=== PATIENT | male | born 1990 | race Caucasian/White ===

== ENCOUNTER 2023-12-30 00:50 | Emergency (ER) | payer MEDICAID, SELFPAY ==
[2023-12-30 00:54] VITALS: BP 146/106; PULSE 75; TEMP 36.6; O2SAT 97; BMI 42.4
--- NOTE | 2023-12-30 01:20 | ED_ITS ---
HPI HPI - Back Pain/Injury General Chief Complaint: Back Pain/Injury Stated Complaint: flank pain Time Seen by Provider: 12/30/23 01:09 Mode of arrival: walk-in Limitations: no limitations History of Present Illness HPI Narrative: patient presents complaining of right sided back pain for past 3 days. States pain has increased. No injury. No urinary symptoms. No fever , chills or nausea Related Data Home Medications ?Medication ?Instructions ?Recorded ?Confirmed acetaminophen 500 mg capsule 500 mg PO Q6H PRN pain 12/30/23 12/30/23 atorvastatin 20 mg tablet 20 mg PO DAILY 12/30/23 12/30/23 cariprazine 1.5 mg capsule 1.5 mg PO DAILY 12/30/23 12/30/23 dulaglutide 0.75 mg/0.5 mL 0.75 mg subcut QWEEK 12/30/23 12/30/23 subcutaneous pen injector (Trulicity) hydroxyzine pamoate 25 mg capsule 25 mg PO Q6H PRN anxiety 12/30/23 12/30/23 (Vistaril) ibuprofen 800 mg tablet 800 mg PO Q12H PRN pain 12/30/23 12/30/23 insulin glargine 100 unit/mL (3 23 unit subcut QAM 12/30/23 12/30/23 mL) subcutaneous pen (Basaglar KwikPen U-100 Insulin) losartan 25 mg tablet 25 mg PO DAILY 12/30/23 12/30/23 melatonin 10 mg PO .hs PRN sleep 12/30/23 12/30/23 metformin 500 mg tablet,extended 500 mg PO BID 12/30/23 12/30/23 release 24 hr omeprazole 20 mg capsule,delayed 20 mg PO DAILY 12/30/23 12/30/23 release ondansetron 8 mg disintegrating 8 mg PO Q12H PRN nausea and 12/30/23 12/30/23 tablet vomiting sertraline 50 mg tablet (Zoloft) 50 mg PO DAILY 12/30/23 12/30/23 Allergies Allergy/AdvReac Type Severity Reaction Status Date / Time No Known Drug Allergies Allergy Verified 12/30/23 01:00 Opioid HPI Opioid Management Most Recent Opioid Data: Last Pain Scale 6 12/30/23 02:46 Last MAR Pain Assessment 12/30/23 02:46 Review of Systems ROS Status of ROS 10 or more systems reviewed and unremark able except as noted in history and below Exam Constitutional Vital Signs, click to edit/add: Last Vital Signs Temp 97.9 F 12/30/23 00:54 Pulse 75 12/30/23 00:54 Resp 16 12/30/23 00:54 BP 146/106 H 12/30/23 00:54 Pulse Ox 97 12/30/23 00:54 O2 Del Method Room Air 12/30/23 00:54 Common normals: no apparent distress, average body habitus, oriented x3, no limitations, healthy appearing, alert and well nourished Eye Common normals: EOMs intact bilaterally Respiratory Common normals: normal respiratory effort, no retractions, no use of accessory muscles and clear to auscultation bilaterally Cardio Common normals: regular rate, regular rhythm, S1 normal heart sound and S2 normal heart sound GI Common normals: Normal to inspection, nondistended, normoactive bowel sounds present, soft to palpation and non-tender Back & Pelvis Other: R CVA tenderness Neuro Common normals: oriented x3, CN's II-XII intact bilaterally, moves all extremities and no focal motor deficits Psych Appearance: grossly normal Course Vital Signs Vital signs: Vital Signs Temperature 97.9 F 12/30/23 00:54 Pulse Rate 75 12/30/23 00:54 Respiratory Rate 16 12/30/23 00:54 Blood Pressure 146/106 H 12/30/23 00:54 Pulse Oximetry 97 12/30/23 00:54 Oxygen Delivery Method Room Air 12/30/23 00:54 Temperature 97.9 F 12/30/23 00:54 Pulse Rate 75 12/30/23 00:54 Respiratory Rate 16 12/30/23 00:54 Blood Pressure 146/106 H 12/30/23 00:54 Pulse Oximetry 97 12/30/23 00:54 Oxygen Delivery Method Room Air 12/30/23 00:54 MDM - Back Pain/Injury MDM Narrative Medical decision making narrative: patient presents complaining of pain right CVA/rib cage area. No injury. mild tenderness. CT with disc herniation at T6-7, T7-8 that flattens R thecal sac and is most likely cause of his pain. Patient informed of the above and referred to pain specialist for intervention Lab Data Labs: Lab Results 12/30/23 12/30/23 Range/Units 01:00 01:37 WBC 9.6 (4.0-11.0) 10^3/uL RBC 4.78 (4.70-6.10) 10^6/uL Hgb 14.5 (14.0-18.0) g/dL Hct 43.9 (42.0-54.0) % MCV 91.8 (80.0-94.0) fL MCH 30.3 (25.9-34.0) pg MCHC 33.0 (29.9-35.2) g/dL RDW 12.4 (11.0-15.0) % Plt Count 229 (150-450) 10^3/uL MPV 11.1 (9.5-13.5) fL Neut % (Auto) 51.3 (43.0-75.0) % Lymph % (Auto) 39.5 (20.5-60.0) % [place] % (Auto) 6.6 (1.7-12.0) % Eos % (Auto) 1.4 (0.9-7.0) % Baso % (Auto) 0.8 (0.2-2.0) % Neut # (Auto) 4.9 (1.4-6.5) 10^3/uL Lymph # (Auto) 3.8 (1.2-3.8) 10^3/uL [place] # (Auto) 0.6 (0.3-0.8) 10^3/uL Eos # (Auto) 0.1 (0.0-0.7) 10^3/uL Baso # (Auto) 0.1 (0.0-0.1) 10^3/uL Abs Immat Gran (auto) 0.04 H (0.00-0.03) 10^3/uL Imm/Tot Granulo (auto) 0.4 (0.0-0.5) % Sodium 137 (136-145) mmol/L Potassium 4.1 (3.5-5.1) mmol/L Chloride 101 (98-107) mmol/L Carbon Dioxide 30.8 (21.0-32.0) mmol/L Anion Gap 9.3 BUN 12.0 (7.0-18.0) mg/dL Creatinine 0.86 (0.70-1.30) mg/dL Est GFR ( Amer) >60 (>=60) Est GFR (Non-Af Amer) >60 (>=60) BUN/Creatinine Ratio 14.0 Glucose 291 H (74-106) mg/dL Calcium 9.4 (8.5-10.1) mg/dL Total Bilirubin 0.4 (0.2-1.0) mg/dL AST 14 L (15-37) U/L ALT 33 (16-63) U/L Alkaline Phosphatase 105 (46-116) U/L Total Protein 7.4 (6.4-8.2) g/dL Albumin 3.3 L (3.4-5.0) g/dL Globulin 4.1 g/dL Albumin/Globulin Ratio 0.8 Urine Color Yellow (YELLOW) Urine Clarity Clear (CLEAR) Urine pH 5.5 (5.0-9.0) Ur Specific [place] 1.025 (1.005-1.025) Urine Protein Negative (NEG/TRACE) mg/dL Urine Glucose (UA) >=1000 A (NEGATIVE) mg/dL Urine Ketones Trace A (NEGATIVE) mg/dL Urine Occult Blood Negative (NEGATIVE) Urine Nitrite Negative (NEGATIVE) Urine Bilirubin Negative (NEGATIVE) Urine Urobilinogen 1.0 (0.2-1.0) EU/dL Ur Leukocyte Esterase Negative (NEGATIVE) Imaging Data CT scan - abdomen: Radiologist's impression: ITS Impressions Abdomen/Pelvis CT 12/30/23 01:23 IMPRESSION: Hepatic steatosis with mild hepatic enlargement, otherwise negative CT of the abdomen and pelvis without contrast. These imaging findings do not exclude additional clinically significant abnormalities. This report should be interpreted in the context of clinical information including patient symptoms and available laboratory findings. Follow-up imaging or other interventions may be appropriate, if indicated by your clinical impression. Electronically authenticated by: PAPI SY Date: 12/30/2023 03:16 Chest X-Ray 12/30/23 01:23 IMPRESSION: Mild streaky opacities at the right infrahilar lower lung reflecting atelectasis or lung infiltrates. If there is persistent concern, then CT chest to better evaluate. Electronically authenticated by: REGINO CHENG Date: 12/30/2023 03:[address] 12/30/23 03:40 IMPRESSION: At T6-T7 and T7-T8 of the thoracic spine, there are large right eccentric disc herniation/osteophyte complexes which flatten the right ventral thecal sac and contribute to right paracentral spinal canal stenosis and right bony neural foraminal stenoses at these levels. Recommend MRI spine without contrast to better evaluate for any cord compression and also to evaluate the degree of canal stenosis. Mild streaky lung opacities at the right middle lobe reflecting atelectasis/scar, less likely lung infiltrates. Mild left coronary artery calcifications. No enlarged heart size or large pericardial effusion. Electronically authenticated by: REGINO CHENG Date: 12/30/2023 05:19 Discharge Plan Discharge Stand Alone Forms: Portal Instructions Chief Complaint: Back Pain/Injury Clinical Impression: Thoracic back pain Patient Disposition: Home, Self-Care Prescriptions / Home Meds: No Action metformin 500 mg tablet extended release 24 hr 500 mg PO BID insulin glargine [Basaglar KwikPen U-100 Insulin] 100 unit/mL (3 mL) insulin pen 23 unit subcut QAM Trulicity 0.75 mg/0.5 mL pen injector 0.75 mg subcut QWEEK Rx Instructions: Start 12/30 atorvastatin 20 mg tablet 20 mg PO DAILY losartan 25 mg tablet 25 mg PO DAILY cariprazine 1.5 mg capsule 1.5 mg PO DAILY sertraline [Zoloft] 50 mg tablet 50 mg PO DAILY omeprazole 20 mg capsule,delayed release(DR/EC) 20 mg PO DAILY acetaminophen 500 mg capsule 500 mg PO Q6H PRN (Reason: pain) Rx Instructions: 1-2 tabs ibuprofen 800 mg tablet 800 mg PO Q12H PRN (Reason: pain) melatonin 10 mg 10 mg PO .hs PRN (Reason: sleep) hydroxyzine pamoate [Vistaril] 25 mg capsule 25 mg PO Q6H PRN (Reason: anxiety) ondansetron 8 mg tablet,disintegrating 8 mg PO Q12H PRN (Reason: nausea and vomiting) Print Language: Lithuanian Instructions: Thoracic Disc Herniation (ED) Additional Instructions: follow up with pain specialist Referrals: Kevon Boyce MD [Emergency Provider] - 1 week Lashanda Cleveland MD [Physician] - As soon as possible (Call Monday) Physician,Non-Staff, [Primary Care Provider] - 1 week
--- NOTE | 2023-12-30 01:23 | XR_ITS ---
The [place] [id number] Patient Name: LINDSAY CRUZ MRN: [id number] date: 1990 Sex: M Assigned Patient Location: ER Current Patient Location: ER Accession/Order Number: [id number] Exam Date: 12/30/2023 01:40 Report Date: 12/30/2023 03:13 At the request of: ANA STACK Procedure: XR chest 2V EXAM: XR chest 2V HISTORY: right CVA pain COMPARISON: Chest x-ray 11/25/2023 TECHNIQUE: 2 views chest x-rays frontal and lateral FINDINGS: Mild streaky opacities at the right infrahilar lower lung. No large pleural effusion, pneumothorax, or acute bony abnormality. Cardiac size is unremarkable. XR/XR chest 2V IMPRESSION: Mild streaky opacities at the right infrahilar lower lung reflecting atelectasis or lung infiltrates. If there is persistent concern, then CT chest to better evaluate. Electronically authenticated by: REGINO CHENG Date: 12/30/2023 03:13
--- NOTE | 2023-12-30 01:23 | CT_ITS ---
The [address] [address] Patient Name: LINDSAY CRUZ MRN: [id number] date: 1990 Sex: M Assigned Patient Location: ER Current Patient Location: Accession/Order Number: [id number] Exam Date: 12/30/2023 01:45 Report Date: 12/30/2023 03:16 At the request of: ANA STACK Procedure: CT abdomen pelvis wo con CT ABDOMEN PELVIS WITHOUT CONTRAST HISTORY: Right CVA pain. Right flank pain with burning sensation. COMPARISON: None. TECHNIQUE: Thin section axial CT images were obtained from the lung bases to the pubis symphysis. This CT exam was performed using one or more of the following dose reduction techniques: Automated exposure control, adjustment of the mA and/or kV according to patient size, or use of iterative reconstruction technique. Thin section coronal and sagittal images were reconstructed from the axial data set. All images were reviewed and interpreted. CONTRAST: None. FINDINGS: Assessment of solid organs is limited without the benefit of IV contrast. LUNG BASES: The lung bases are clear. GE JUNCTION AND STOMACH: Negative. No hiatal hernia. LIVER: Mild diffuse hepatic steatosis. Mild hepatomegaly. Splenic length 21 cm. No hepatic mass or cyst. Mild sparing of fatty infiltration around gallbladder fossa. GALLBLADDER AND BILIARY TREE: Normal appearance of gallbladder with no intrahepatic or extrahepatic bile duct distention. SPLEEN: Negative. PANCREAS: Negative. ADRENALS: Negative. KIDNEYS AND URETERS: Negative. No urinary tract calculi or hydronephrosis. No renal masses or cysts are evident. SMALL BOWEL: Normal caliber loops. No enteritis or obstruction. LARGE BOWEL: Normal caliber loops. No colitis or diverticulosis or wall thickening. APPENDIX: No active disease with normal appendix. AORTA: The abdominal aorta is normal size. IVC: Negative. LYMPH NODES: There is no lymphadenopathy. BLADDER: Normal bladder. BONES: Unremarkable. COMMENTS: No ascites or loculated fluid. No free air. No inflammatory changes. CT/CT abdomen pelvis wo con IMPRESSION: Hepatic steatosis with mild hepatic enlargement, otherwise negative CT of the abdomen and pelvis without contrast. These imaging findings do not exclude additional clinically significant abnormalities. This report should be interpreted in the context of clinical information including patient symptoms and available laboratory findings. Follow-up imaging or other interventions may be appropriate, if indicated by your clinical impression. Electronically authenticated by: PAPI SY Date: 12/30/2023 03:16
[2023-12-30 01:48] LABS: Basophils Absolute Auto 0.1 10^3/uL (0.0-0.1); Basophils Percent Auto 0.8 % (0.2-2.0); Eosinophils Absolute Auto 0.1 10^3/uL (0.0-0.7); Eosinophils Percent Auto 1.4 % (0.9-7.0); Hematocrit 43.9 % (42.0-54.0); Hemoglobin 14.5 g/dL (14.0-18.0); Immature Granulocytes Abs Auto 0.04 10^3/uL (0.00-0.03); Immature Granulocytes Pct Auto 0.4 % (0.0-0.5); Lymphocytes Absolute Auto 3.8 10^3/uL (1.2-3.8); Lymphocytes Percent Auto 39.5 % (20.5-60.0); Mean Corpuscular Hemoglobin 30.3 pg (25.9-34.0); Mean Corpuscular Volume 91.8 fL (80.0-94.0); Mean Platelet Volume 11.1 fL (9.5-13.5); Monocytes Absolute Auto 0.6 10^3/uL (0.3-0.8); Monocytes Percent Auto 6.6 % (1.7-12.0); Neutrophils Absolute Auto 4.9 10^3/uL (1.4-6.5); Neutrophils Percent Auto 51.3 % (43.0-75.0); Platelet Count 229 10^3/uL (150-450); Red Blood Count 4.78 10^6/uL (4.70-6.10); Red Cell Distribution Width 12.4 % (11.0-15.0); White Blood Count 9.6 10^3/uL (4.0-11.0)
[2023-12-30 01:48] LABS: Bilirubin Urine NEGATIVE (NEGATIVE); Blood Urine NEGATIVE (NEGATIVE); Clarity Urine CLEAR (CLEAR); Color Urine YELLOW (YELLOW); Glucose Urine UA >=1000 mg/dL (NEGATIVE); Ketones Urine TRACE mg/dL (NEGATIVE); Leukocyte Esterase Urine NEGATIVE (NEGATIVE); Nitrite Urine NEGATIVE (NEGATIVE); Protein Urine NEGATIVE (NEG/TRACE); Specific Gravity Urine 1.025 (1.005-1.025); pH Urine 5.5 (5.0-9.0)
[2023-12-30 01:49] LABS: Urine Microscopic Indicated NO
[2023-12-30 02:04] LABS: Alanine Aminotransferase 33 U/L (16-63); Albumin Globulin Ratio 0.8; Albumin Level 3.3 g/dL (3.4-5.0); Alkaline Phosphatase 105 U/L (46-116); Anion Gap 9.3; Aspartate Amino Transferase 14 U/L (15-37); Bilirubin Total 0.4 mg/dL (0.2-1.0); Calcium 9.4 mg/dL (8.5-10.1); Carbon Dioxide 30.8 mmol/L (21.0-32.0); Chloride 101 mmol/L (98-107); Estimated GFR (African America >60 (>=60); Estimated GFR (Non-African Ame >60 (>=60); Globulin 4.1 g/dL; Glucose 291 mg/dL (74-106); Potassium 4.1 mmol/L (3.5-5.1); Sodium 137 mmol/L (136-145); Total Protein 7.4 g/dL (6.4-8.2)
[2023-12-30] MEDS: KETOROLAC TROMETHAMINE 60 MG/2 ML VIAL IM (02:46)
--- NOTE | 2023-12-30 03:40 | CT_ITS ---
The [address] [address] Patient Name: LINDSAY CRUZ MRN: [id number] date: 1990 Sex: M Assigned Patient Location: ER Current Patient Location: ER Accession/Order Number: [id number] Exam Date: 12/30/2023 04:08 Report Date: 12/30/2023 05:19 At the request of: ANA STACK Procedure: CT chest wo con EXAMINATION: CT chest wo con, 12/30/2023 4:08 AM EDT HISTORY: right CVA pain COMPARISON: CT abdomen pelvis 12/30/2023, chest x-ray 12/30/2023 TECHNIQUE: CT scan of the chest was performed without IV contrast. CT dose reduction technique was used, including Automated Exposure Control. FINDINGS: Central airway is patent. Mild streaky opacities at the right middle lobe reflecting atelectasis/scar, less likely lung infiltrates. No large pleural effusion, pneumothorax, or lobar lung consolidation. Mild left coronary artery calcifications. No enlarged heart size or large pericardial effusion. Small hiatal hernia. Hepatic steatosis and hepatomegaly. At T6-T7 and T7-T8 of the thoracic spine, there are large right eccentric disc herniation/osteophyte complexes which flatten the right ventral thecal sac and contribute to right paracentral spinal canal stenosis and right bony neural foraminal stenoses at these levels. (Image 63 series 7) Otherwise, no acute bony abnormality. Small hiatal hernia. CORONARY ARTERIES: Coronary calcifications are mild. CT/CT chest wo con IMPRESSION: At T6-T7 and T7-T8 of the thoracic spine, there are large right eccentric disc herniation/osteophyte complexes which flatten the right ventral thecal sac and contribute to right paracentral spinal canal stenosis and right bony neural foraminal stenoses at these levels. Recommend MRI spine without contrast to better evaluate for any cord compression and also to evaluate the degree of canal stenosis. Mild streaky lung opacities at the right middle lobe reflecting atelectasis/scar, less likely lung infiltrates. Mild left coronary artery calcifications. No enlarged heart size or large pericardial effusion. Electronically authenticated by: REGINO CHENG Date: 12/30/2023 05:19
[2023-12-30 06:00] VITALS: BP 130/96; PULSE 58; O2SAT 97
== END 2023-12-30 06:03 | disposition home or self-care (01) ==
PROVIDERS: Emergency Provider Internal Medicine
DX: M54.6 Pain in thoracic spine (principal)
CPT/HCPCS: 36415; 71046; 71250; 74176; 80053; 81003; 85025; 96372; 99285; J1885